=== PATIENT | male | born 1990 | race Caucasian/White ===

== ENCOUNTER 2018-11-02 16:47 | Inpatient (IN) | payer OTHER ==
[2018-11-02] MEDS ORDERED: METHYLPREDNISOLONE INJ 125 MG/2 ML SDV IV ONE (17:37)
[2018-11-02] MEDS ORDERED: IPRATROPIUM/ALBUTEROL 0.5-2.5 MG/3 ML AMPUL NEB ONE ×2 (17:37→18:36)
[2018-11-02] MEDS ORDERED: NORMAL SALINE 1000 ML 1,000 ML IV ONE (17:43)
--- NOTE | 2018-11-02 17:43 | ER Document Report ---
ED Medical Screen (RME) - General Chief Complaint: Shortness Of Breath Stated Complaint: BREATHING ISSUES Time Seen by Provider: 11/02/18 17:26 Mode of Arrival: Ambulatory Information source: Patient Notes: 27-year-old male presented to ED for shortness of breath tachycardia low O2 sat times a week. His pulse was between 130 and 140 during my exam. Sats were in the 95 on 2 L O2. He states he has been this way for about a week. He has inspiratory and expiratory wheezing without listening with a stethoscope that I can hear across the room. He is alert oriented. He states he has been getting progressively worse over the last week. I have greeted and performed a rapid initial assessment of this patient. A comprehensive ED assessment and evaluation of the patient, analysis of test results and completion of medical decision making process will be conducted by an additional ED providers. Dictation of this chart was performed using voice recognition software; therefore, there may be some unintended grammatical errors. TRAVEL OUTSIDE OF THE [place] IN LAST 30 DAYS: No - Related Data Allergies/Adverse Reactions: No Known Allergies Allergy (Verified 03/21/15 14:00) Past Medical History Pulmonary Medical History: Reports: Hx Asthma, Hx Bronchitis, Hx Pneumonia GI Medical History: Reports: Hx Gastroesophageal Reflux Disease Musculoskeltal Medical History: Reports Hx Musculoskeletal Deformity, Reports Hx Musculoskeletal Trauma Traumatic Medical History: Reports: Hx Fractures - Immunizations Immunizations up to date: Yes Hx Diphtheria, Pertussis, Tetanus Vaccination: Yes Physical Exam - Vital signs Vitals: Temp Pulse Resp BP Pulse Ox 99.2 F 140 H 22 H 190/122 H 89 L 11/02/18 17:00 11/02/18 17:00 11/02/18 17:00 11/02/18 17:00 11/02/18 17:00 Course - Vital Signs Vital signs: Temp Pulse Resp BP Pulse Ox 99.2 F 140 H 22 H 190/122 H 89 L 11/02/18 17:00 11/02/18 17:00 11/02/18 17:00 11/02/18 17:00 11/02/18 17:00
[2018-11-02] MEDS ORDERED: ONDANSETRON HCL INJ/PF 4 MG/2 ML SDV IV ONE (17:58)
[2018-11-02] MEDS: ALBUTEROL SULFATE 0.083% NEB 2.5 MG/3 ML AMPUL NEB SCH ×3 (18:10→19:50)
[2018-11-02 18:34] LABS: ABSOLUTE BASOPHILS # (AUTO) 0.2 10^3/uL (0.0-0.2); ABSOLUTE EOSINOPHILS # (AUTO) 1.6 10^3/uL (0.0-0.6); ABSOLUTE LYMPHOCYTES (AUTO) 2.4 10^3/uL (0.5-4.7); ABSOLUTE MONOCYTES (AUTO) 1.2 10^3/uL (0.1-1.4); ABSOLUTE NEUT (AUTO) 8.9 10^3/uL (1.7-8.2); BASOPHILS % (AUTO) 1.2 % (0-2); EOSINOPHILS % (AUTO) 11.5 % (0-6); HEMATOCRIT 47.3 % (37.9-51.0); HEMOGLOBIN 16.2 g/dL (13.5-17.0); MEAN CORPUSCULAR HEMOGLOBIN 30.9 pg (27.0-33.4); MEAN CORPUSCULAR HGB CONC 34.3 g/dL (32.0-36.0); MEAN CORPUSCULAR VOLUME 90 fl (80-97); MONOCYTES % (AUTO) 8.4 % (3-13); PLATELET COUNT 410 10^3/uL (150-450); RED BLOOD COUNT 5.26 10^6/uL (4.35-5.55); RED CELL DISTRIBUTION WIDTH 12.6 % (11.5-14.0); SEGMENTED NEUTROPHILS % (AUTO) 61.9 % (42-78); TOTAL CELLS COUNTED % (AUTO) 100 %; WHITE BLOOD COUNT 14.4 10^3/uL (4.0-10.5)
[2018-11-02] MEDS ORDERED: ALBUTEROL SULFATE 0.083% NEB 2.5 MG/3 ML AMPUL NEB ONE (18:36)
--- NOTE | 2018-11-02 18:39 | ER Document Report ---
ED General - General Chief Complaint: Shortness Of Breath Stated Complaint: BREATHING ISSUES Time Seen by Provider: 11/02/18 17:26 Mode of Arrival: Ambulatory Cannot obtain history due to: Unstable vital signs Notes: Patient is a 27-year-old male with a past medical history of asthma who presents with severe shortness of breath. Initial history is somewhat limited secondary to the patient's degree of distress. In summary the patient reports that over the past 1 week he has had progressively worsening shortness of breath and wheezing. States that he does not have a primary care doctor and does not have inhalers at home. States that today his symptoms became much worse over the last several hours prompting him to come to the emergency department. He describes his shortness of breath is a severe, pervasive, constant symptom. Not improved by anything. Worsened by exertion or coughing. Denies fever or constitutional symptoms. Denies pedal edema. No history of DVT or pulmonary embolus. TRAVEL OUTSIDE OF THE [place] IN LAST 30 DAYS: No - Related Data Allergies/Adverse Reactions: No Known Allergies Allergy (Verified 03/21/15 14:00) Past Medical History - General Information source: Patient - Social History Smoking Status: Current Every Day Smoker Frequency of alcohol use: None Drug Abuse: None Lives with: Family Family History: DM, Hyperlipidemia, Hypertension, Malignancy, Thyroid Disfunction Pulmonary Medical History: Reports: Hx Asthma, Hx Bronchitis, Hx Pneumonia GI Medical History: Reports: Hx Gastroesophageal Reflux Disease Musculoskeletal Medical History: Reports Hx Musculoskeletal Deformity, Reports Hx Musculoskeletal Trauma Traumatic Medical History: Reports: Hx Fractures - Immunizations Immunizations up to date: Yes Hx Diphtheria, Pertussis, Tetanus Vaccination: Yes Review of Systems - Review of Systems Notes: Constitutional: Negative for fever. HENT: Negative for sore throat. Eyes: Negative for visual changes. Cardiovascular: Negative for chest pain. Respiratory: Positive for shortness of breath. Gastrointestinal: Negative for abdominal pain, vomiting or diarrhea. Genitourinary: Negative for dysuria. Musculoskeletal: Negative for back pain. Skin: Negative for rash. Neurological: Negative for headaches, weakness or numbness. 10 point ROS negative except as marked above and in HPI. Physical Exam - Vital signs Vitals: Temp Pulse Resp BP Pulse Ox 99.2 F 140 H 22 H 190/122 H 89 L 11/02/18 17:00 11/02/18 17:00 11/02/18 17:00 11/02/18 17:00 11/02/18 17:00 Interpretation: Hypertensive, Tachycardic, Hypoxic, Tachypneic Notes: PHYSICAL EXAMINATION: GENERAL: Appears unwell, in moderate to severe respiratory distress HEAD: Atraumatic, normocephalic. EYES: Pupils equal round and reactive to light, extraocular movements intact, sclera anicteric, conjunctiva are normal. ENT: nares patent, oropharynx clear without exudates. Mildly dry mucous membranes. NECK: Normal range of motion, supple without lymphadenopathy LUNGS: Coarse wheezing in all lung john with diminished air movement throu ghout. Moderate to severe distress with associated tachypnea rates greater than 30 breaths/min. Intercostal and supraclavicular retractions are present. HEART: Regular tachycardia without murmurs ABDOMEN: Soft, nontender, normoactive bowel sounds. No guarding, no rebound. No masses appreciated. EXTREMITIES: Normal range of motion, no pitting or edema. No cyanosis. NEUROLOGICAL: No focal neurological deficits. Moves all extremities spontaneously and on command. PSYCH: Anxious SKIN: Warm, Dry, normal turgor, no rashes or lesions noted. Course - Re-evaluation Re-evalutation: 11/02/18 18:37 Documentation is delayed as I been at this patient's bedside continuously for the past 25 minutes. In summary the patient does present in respiratory distress. The patient is saturating into the mid 80s on room air and does not normally have a home oxygen requirement. He is profoundly tachycardic and also hypertensive. On exam the patient is able to speak approximately 4-5 words per sentence but is clearly laboring in his breathing with both intercostal and supraclavicular retractions. Respiratory rate in the mid 30s at the time of my initial evaluation on supple mental oxygen at a continuous nebulizer. Stat portable chest x-ray shows hyperinflation of the lungs but is otherwise unremarkable. Labs are pending. Patient is received 125 mg of Solu-Medrol. 2 g of magnesium will go over 10 minutes. Continuous nebulizers will be administered through BiPAP which has been applied within the past 1 to 2 minutes. Patient has a history of recurrent severe exacerbations and his lung examination is very consistent with a obstructive lung pathology given very pronounced expiratory wheezing in all lung john. He does have a history of tobacco abuse which could be contributing to his symptoms. Patient is in gu arded condition, will require frequent reassessments. 11/02/18 19:36 Patient continues on in-line nebulizers to the BiPAP. Tolerating BiPAP much better after 1 mg of Ativan. On repeat lung exam he has much more pronounced wheezing in all lung john and much better air movement throughout. Will c ontinue to reassess at regular intervals. Labs unremarkable. Chest x-ray has been formally read without any acute pathology. 11/02/18 20:44 Patient's work of breathing continues to improve dramatically although he continues to have coarse expiratory wheezing in all lung john. He is currently saturating 97% on 50% FiO2 12 on 6. Heart rate remains moderately elevated at 120 bpm. Will discuss with the hospitalist for admission. 11/02/18 20:52 I did discuss with Dr. Butt who has accepted the patient for admission - Vital Signs Vital signs: Temp Pulse Resp BP Pulse Ox 98.1 F 124 H 20 160/91 H 97 11/03/18 00:06 11/03/18 02:23 11/03/18 02:23 11/03/18 00:06 11/03/18 02:23 - Laboratory Result Diagrams: 11/02/18 18:05 11/02/18 18:05 Laboratory results interpreted by me: 11/02/18 11/02/18 11/02/18 18:05 18:05 18:05 WBC 14.4 H Eosinophils % 11.5 H Absolute Neutrophils 8.9 H Absolute Eosinophils 1.6 H ESR Chloride 94 L Glucose 180 H Calcium 10.4 H C-Reactive Protein 14.9 H Total Protein 8.8 H 11/02/18 18:05 WBC Eosinophils % Absolute Neutrophils Absolute Eosinophils ESR 23 H Chloride Glucose Calcium C-Reactive Protein Total Protein - Diagnostic Test Radiology reviewed: Image reviewed, Reports reviewed Radiology results interpreted by me: 11/02/18 20:52 Chest x-ray: No acute infiltrate or pneumothorax - EKG Interpretation by Me Additional EKG results interpreted by me: 11/02/18 20:52 Sinus tachycardia, rate 115. No ST elevations or depressions. QTC is 487 Critical Care Note - Critical Care Note Total time excluding time spent on procedures (mins): 40 Comments: Critical care time spent obtaining history from patient or surrogate, discussio ns with consultants, development of treatment plan with patient or surrogate, evaluation of patient's response to treatment, examination of patient, ordering and performing treatments and interventions, ordering and review of laboratory studies, re-evaluation of patient's condition, ordering and review of radiographic studies and review of old charts Discharge - Discharge Clinical Impression: Respiratory distress, Acute respiratory failure with hypoxia Asthma exacerbation Qualifiers: Asthma severity: severe Asthma persistence: unspecified Qualified Code(s): J45.901 - Unspecified asthma with (acute) exacerbation Condition: Fair Disposition: ADMITTED INPATIENT Admitting Provider: Daquan (Hospitalist) Unit Admitted: Telemetry
[2018-11-02] MEDS ORDERED: LORAZEPAM INJ 2 MG/1 ML VIAL IV ONE (18:40)
--- NOTE | 2018-11-02 18:42 | RADIOLOGY REPORT (SQ) ---
EXAM DESCRIPTION: CHEST SINGLE VIEW COMPLETED DATE/TIME: 11/02/2018 6:33 pm REASON FOR STUDY: short of breath week COMPARISON: 03/21/2015. EXAM PARAMETERS: NUMBER OF VIEWS: One view. TECHNIQUE: Single frontal radiographic view of the chest acquired. RADIATION DOSE: NA LIMITATIONS: None. FINDINGS: LUNGS AND PLEURA: No opacities, masses or pneumothorax. No pleural effusion. MEDIASTINUM AND HILAR STRUCTURES: No masses. Contour normal. HEART AND VASCULAR STRUCTURES: Heart normal in size. Normal vasculature. BONES: No acute findings. HARDWARE: None in the chest. OTHER: No other significant finding. IMPRESSION: NO ACUTE RADIOGRAPHIC FINDING IN THE CHEST. TECHNICAL DOCUMENTATION: JOB ID: [id number] [employer]- All Rights Reserved Reading location - IP/workstation name: [email or web address]
[2018-11-02 18:54] LABS: ALANINE AMINOTRANSFERASE 26 U/L (21-72); ALBUMIN 4.9 g/dL (3.5-5.0); ALKALINE PHOSPHATASE 89 U/L (38-126); ANION GAP 16 (5-19); ASPARTATE AMINO TRANSFERASE 21 U/L (17-59); BILIRUBIN,DIRECT 0.2 mg/dL (0.0-0.4); BILIRUBIN,TOTAL 0.5 mg/dL (0.2-1.3); BLOOD UREA NITROGEN 12 mg/dL (7-20); CALCIUM 10.4 mg/dL (8.4-10.2); CARBON DIOXIDE 29 mmol/L (22-30); CHLORIDE 94 mmol/L (98-107); GLUCOSE 180 mg/dL (75-110); POTASSIUM 3.9 mmol/L (3.6-5.0); SODIUM 138.8 mmol/L (137-145); TOTAL PROTEIN 8.8 g/dL (6.3-8.2)
[2018-11-02] MEDS: MAGNESIUM SULFATE/D5W 1 GM/100 ML RTUPB IV SCH ×2 (18:54→19:12)
[2018-11-02 19:04] LABS: CREATINE KINASE MB 3.85 ng/mL (<4.55)
[2018-11-02 19:06] LABS: TROPONIN I < 0.012 ng/mL
[2018-11-02] MEDS ORDERED: RINGERS SOLUTION,LACTATED 1,000 ML IV ONE (20:45)
[2018-11-02] MEDS ORDERED: ACETAMINOPHEN 325 MG TABLET PO PRN (20:48)
[2018-11-02] MEDS ORDERED: IPRATROPIUM/ALBUTEROL 0.5-2.5 MG/3 ML AMPUL NEB PRN (20:48)
[2018-11-02] MEDS: IPRATROPIUM/ALBUTEROL 0.5-2.5 MG/3 ML AMPUL NEB SCH (21:19)
[2018-11-02 22:13] LABS: APPEARANCE,URINE CLOUDY; BILIRUBIN,URINE NEGATIVE (NEGATIVE); COLOR,URINE YELLOW; GLUCOSE, URINE NEGATIVE (NEGATIVE); KETONES,URINE NEGATIVE (NEGATIVE); LEUKOCYTE ESTERASE,URINE NEGATIVE (NEGATIVE); NITRITE,URINE NEGATIVE (NEGATIVE); PROTEIN,URINE 100 mg/dL (NEGATIVE); URINE SPECIFIC GRAVITY 1.019; UROBILINOGEN,URINE NEGATIVE mg/dL (<2.0)
[2018-11-02] MEDS: METHYLPREDNISOLONE INJ 125 MG/2 ML SDV IV SCH (23:01)
[2018-11-02] MEDS: LEVOFLOXACIN 750 MG/D5W RTU 750 MG/150 ML RTUPB IV SCH (23:02)
[2018-11-02] MEDS: FLUTICASONE NASAL SPRAY 50 MCG/SPRY 120 SPRAY/16 GM NASL SCH (23:45)
[2018-11-03] MEDS: HEPARIN SOD (PORCINE) 5,000 UNIT/ML 1 ML SYRINGE SUBCUT SCH ×4 (00:45→21:07)
[2018-11-03] MEDS: CHLORPHENIRAMINE MALEATE 4 MG TABLET PO SCH ×5 (01:09→20:57)
[2018-11-03] MEDS: IPRATROPIUM/ALBUTEROL 0.5-2.5 MG/3 ML AMPUL NEB SCH ×4 (02:23→20:40)
--- NOTE | 2018-11-03 03:46 | PDOC H&P ---
History of Present Illness Admission Date/PCP: 11/02/18 20:56 Patient complains of: Shortness of breath and cough History of Present Illness: DAYA BOWIE is a 27 year old male with a past medical history of COPD, chronic bronchitis tobacco and IV heroin abuse. Patient presents 7 days after the onset of shortness of breath, nonproductive cough developing fever prompting evaluation emergency room. Presentation complicated by daily IV heroin use. In the emergency department he is found to have global wheeze audible at bedside tachycardia and hypoxia, chest x-ray is unremarkable but physical exam notable for rhonchi and a systolic murmur. Patient denies recent antibiotic use. He receives symptomatic management and referred to the hospitalist for admission. Past Medical History Cardiac Medical History: Reports: None Pulmonary Medical History: Reports: Asthma, Bronchitis, Chronic Obstructive Pulmonary Disease (COPD), Pneumonia EENT Medical History: Reports: None Neurological Medical History: Reports: None Endocrine Medical History: Reports: None Renal/ Medical History: Reports: None Malignancy Medical History: Reports: None GI Medical History: Reports: None, Gastroesophageal Reflux Disease Musculoskeltal Medical History: Reports: None Skin Medical History: Reports: None Psychiatric Medical History: Reports: Depression, Substance Abuse, Tobacco D ependency Traumatic Medical History: Reports: None Hematology: Reports: None Infectious Medical History: Reports: None Past Surgical History Past Surgical History: Reports: None Social History Information Source: Patient Lives with: Parents Smoking Status: Current Every Day Smoker Cigarettes Packs Per Day: 0.5 Frequency of Alcohol Use: Rare Hx Recreational Drug Use: Yes Drugs: Heroin, Marijuana - Advance Directive Resuscitation Status: Full Code Family History Family History: DM, Hyperlipidemia, Hypertension, Malignancy, Thyroid Disfunction Parental Family History Reviewed: Yes Children Family History Reviewed: Yes Sibling(s) Family History Reviewed.: Yes Medication/Allergy Home Medications: Albuterol Sulfate [Ventolin 0.083% Neb 2.5 mg/3 mL Ampul] 1 vial NEB Q4 PRN #25 vial 10/12/12 Tramadol HCl [Ultram 50 mg Tablet] 50 mg PO ASDIR PRN #20 tablet 03/13/14 Hydrocodone/Acetaminophen [Vicodin 5-300 mg Tablet] 1 tab PO ASDIR PRN #15 tab 10/27/14 Albuterol Sulfate [Proair HFA Inhalation Aerosol 8.5 gm MDI] 2 puff IH Q4H PRN #1 mdi 03/21/15 Prednisone 50 mg PO DAILY #5 tablet 03/21/15 Allergies/Adverse Reactions: No Known Allergies Allergy (Verified 03/21/15 14:00) Review of Systems Constitutional: PRESENT: as per HPI, anorexia, chills, fatigue, fever(s), night sweats, weakness, weight loss Eyes: ABSENT: visual disturbances Ears: ABSENT: hearing changes Cardiovascular: PRESENT: dyspnea on exertion. ABSENT: chest pain, edema, orthropnea, palpitations Respiratory: PRESENT: as per HPI, cough, dyspnea. ABSENT: sputum Gastrointestinal: ABSENT: abdominal pain, constipation, diarrhea, hematemesis, hematochezia, nausea, vomiting Genitourinary: ABSENT: dysuria, hematuria Musculoskeletal: ABSENT: joint swelling Integumentary: ABSENT: rash, wounds Neurological: ABSENT: abnormal gait, abnormal speech, confusion, dizziness, focal weakness, syncope Psychiatric: ABSENT: anxiety, depression, homidical ideation, suicidal ideation Endocrine: ABSENT: cold intolerance, heat intolerance, polydipsia, polyuria Hematologic/Lymphatic: ABSENT: easy bleeding, easy bruising Physical Exam Vital Signs: Temp Pulse Resp BP Pulse Ox 98.1 F 124 H 20 160/91 H 97 11/03/18 00:06 11/03/18 02:23 11/03/18 02:23 11/03/18 00:06 11/03/18 02:23 Intake & Output 11/01/18 11/02/18 11/03/18 11:59 11:59 11:59 Intake Total 1280 Balance 1280 Weight 78.9 kg General appearance: PRESENT: disheveled, severe distress, thin, well-developed, well-nourished Head exam: PRESENT: atraumatic, normocephalic Eye exam: PRESENT: conjunctiva pink, EOMI, PERRLA. ABSENT: scleral icterus Ear exam: PRESENT: normal external ear exam Mouth exam: PRESENT: moist, tongue midline Neck exam: ABSENT: carotid bruit, JVD, lymphadenopathy, thyromegaly Respiratory exam: PRESENT: accessory muscle use, crackles, prolonged expiratory phas, rales, retraction, rhonchi, symmetrical, tachypnea, wheezes Cardiovascular exam: PRESENT: gallop, +S1, +S2, systolic murmur, tachycardia Pulses: PRESENT: normal dorsalis pedis pul Vascular exam: PRESENT: normal capillary refill GI/Abdominal exam: PRESENT: normal bowel sounds, soft. ABSENT: distended, guarding, mass, organolmegaly, rebound, tenderness Rectal exam: PRESENT: deferred Extremities exam: PRESENT: full ROM. ABSENT: calf tenderness, clubbing, pedal edema Neurological exam: PRESENT: alert, awake, oriented to person, oriented to place, oriented to time, oriented to situation, CN II-XII grossly intact. ABSENT: motor sensory deficit Psychiatric exam: PRESENT: appropriate affect, normal mood. ABSENT: homicidal ideation, suicidal ideation Skin exam: PRESENT: other - left lateral wrist IV track lux Without phlebitis Results Laboratory Results: 11/02/18 18:05 11/02/18 18:05 11/02/18 11/02/18 11/02/18 18:05 18:05 18:05 WBC 14.4 H RBC 5.26 Hgb 16.2 Hct 47.3 MCV 90 MCH 30.9 MCHC 34.3 RDW 12.6 Plt Count 410 Seg Neutrophils % 61.9 Lymphocytes % 17.0 Monocytes % 8.4 Eosinophils % 11.5 H Basophils % 1.2 Absolute Neutrophils 8.9 H Absolute Lymphocytes 2.4 Absolute Monocytes 1.2 Absolute Eosinophils 1.6 H Absolute Basophils 0.2 Sodium 138.8 Potassium 3.9 Chloride 94 L Carbon Dioxide 29 Anion Gap 16 BUN 12 Creatinine 0.92 Est GFR ( Amer) > 60 Est GFR (Non-Af Amer) > 60 Glucose 180 H Calcium 10.4 H Total Bilirubin 0.5 AST 21 ALT 26 Alkaline Phosphatase 89 C-Reactive Protein 14.9 H Total Protein 8.8 H Albumin 4.9 Urine Color Urine Appearance Urine pH Ur Specific [place] Urine Protein Urine Glucose (UA) Urine Ketones Urine Blood Urine Nitrite Ur Leukocyte Esterase Urine WBC (Auto) Urine RBC (Auto) 11/02/18 21:55 WBC RBC Hgb Hct MCV MCH MCHC RDW Plt Count Seg Neutrophils % Lymphocytes % Monocytes % Eosinophils % Basophils % Absolute Neutrophils Absolute Lymphocytes Absolute Monocytes Absolute Eosinophils Absolute Basophils Sodium Potassium Chloride Carbon Dioxide Anion Gap BUN Creatinine Est GFR ( Amer) Est GFR (Non-Af Amer) Glucose Calcium Total Bilirubin AST ALT Alkaline Phosphatase C-Reactive Protein Total Protein Albumin Urine Color YELLOW Urine Appearance CLOUDY Urine pH 5.0 Ur Specific [place] 1.019 Urine Protein 100 H Urine Glucose (UA) NEGATIVE Urine Ketones NEGATIVE Urine Blood NEGATIVE Urine Nitrite NEGATIVE Ur Leukocyte Esterase NEGATIVE Urine WBC (Auto) 11 Urine RBC (Auto) 2 11/02/18 11/02/18 18:05 18:05 CK-MB (CK-2) 3.85 Troponin I < 0.012 NT-Pro-B Natriuret Pep 60 Impressions: Chest X-Ray 11/02/18 17:27 IMPRESSION: NO ACUTE RADIOGRAPHIC FINDING IN THE CHEST. Assessment and Plan - Diagnosis (1) Pneumonia Is this a current diagnosis for this admission?: Yes Plan: Pneumonia care set deployed, follow-CBC, blood culture, CT chest given high risk of septic emboli with IV drug use. (2) Acute respiratory failure with hypoxia Is this a current diagnosis for this admission?: Yes Plan: Secondary to #1, empiric antibiotics, albuterol, Atrovent, supplemental oxygen and BiPAP as needed (3) Systolic murmur Is this a current diagnosis for this admission?: Yes Plan: Follow-up 2D echo for risk of endocarditis. (4) IV drug user Is this a current diagnosis for this admission?: Yes Plan: May require opiate weaning. Mental health consult, follow-up CT and echo - Time Time Spent with patient: 35 or more minutes - Inpatient Certification Medical Necessity: Need Close Monitoring Due to Risk of Patient Decompensation
[2018-11-03] MEDS ORDERED: NALOXONE HCL INJ/PF 0.4 MG/1 ML SDV IV PRN (03:48)
[2018-11-03] MEDS: METHYLPREDNISOLONE INJ 125 MG/2 ML SDV IV SCH ×3 (05:37→21:05)
[2018-11-03] MEDS: METHADONE HCL 10 MG TABLET PO SCH ×3 (05:40→21:02)
[2018-11-03 06:12] LABS: ABSOLUTE LYMPHOCYTES (AUTO) 0.7 10^3/uL (0.5-4.7); ABSOLUTE MONOCYTES (AUTO) 0.1 10^3/uL (0.1-1.4); ABSOLUTE NEUT (AUTO) 3.6 10^3/uL (1.7-8.2); BASOPHILS % (AUTO) 0.2 % (0-2); EOSINOPHILS % (AUTO) 0.1 % (0-6); HEMATOCRIT 39.8 % (37.9-51.0); LYMPHOCYTES % (AUTO) 15.4 % (13-45); MEAN CORPUSCULAR HEMOGLOBIN 30.8 pg (27.0-33.4); MEAN CORPUSCULAR HGB CONC 34.4 g/dL (32.0-36.0); MEAN CORPUSCULAR VOLUME 89 fl (80-97); MONOCYTES % (AUTO) 2.2 % (3-13); PLATELET COUNT 257 10^3/uL (150-450); RED BLOOD COUNT 4.45 10^6/uL (4.35-5.55); RED CELL DISTRIBUTION WIDTH 12.7 % (11.5-14.0); SEGMENTED NEUTROPHILS % (AUTO) 82.1 % (42-78); TOTAL CELLS COUNTED % (AUTO) 100 %; WHITE BLOOD COUNT 4.4 10^3/uL (4.0-10.5)
[2018-11-03 06:23] LABS: ANION GAP 13 (5-19); BLOOD UREA NITROGEN 8 mg/dL (7-20); CALCIUM 9.5 mg/dL (8.4-10.2); CARBON DIOXIDE 28 mmol/L (22-30); CHLORIDE 95 mmol/L (98-107); GLUCOSE 198 mg/dL (75-110); SODIUM 136.2 mmol/L (137-145)
[2018-11-03 06:25] LABS: HEMOGLOBIN 13.7 g/dL (13.5-17.0)
--- NOTE | 2018-11-03 07:33 | EKG REPORT ---
SEVERITY:- ABNORMAL ECG - SINUS TACHYCARDIA LEFT POSTERIOR FASCICULAR BLOCK INFERIOR Q WAVES, PROBABLY NORMAL VARIATION BORDERLINE PROLONGED QT INTERVAL : Confirmed by: Kevin Sloan MD 03-Nov-2018 07:32:47
[2018-11-03] MEDS: FLUTICASONE NASAL SPRAY 50 MCG/SPRY 120 SPRAY/16 GM NASL SCH ×2 (11:05→21:03)
--- NOTE | 2018-11-03 14:04 | RADIOLOGY REPORT (SQ) ---
EXAM DESCRIPTION: CTA CHEST COMPLETED DATE/TIME: 11/03/2018 1:50 pm REASON FOR STUDY: IVDA septic emboli? COMPARISON: 11/02/2018 TECHNIQUE: CT scan of the chest performed using helical scanning technique with dynamic intravenous contrast injection. Images reviewed with lung, soft tissue and bone windows. Reconstructed coronal and sagittal MPR images reviewed. Additional 3 dimensional post-processing performed to develop Maximal Intensity Projection images (LA P). All images stored on PACS. All CT scanners at this facility use dose modulation, iterative reconstruction, and/or weight based d osing when appropriate to reduce radiation dose to as low as reasonably achievable (ALARA). [facility]: Dose Right [facility]: CareDose [facility]: Dose Right [facility]: Teradose 4D [facility]: SnappCloud CONTRAST TYPE AND DOSE: contrast/concentration: Isovue 350.00 mg/ml; Total Contrast Delivered: 68.0 ml; Total Saline Delivered: 100.0 ml Contrast bolus optimized for the pulmonary arteries. Not diagnostic for the aorta. RENAL FUNCTION: None required. The patient is less than 50 years old. RADIATION DOSE: CT Rad equipment meets quality standard of care and radiation dose reduction techniq ues were employed. CTDIvol: 7.6 - 11.3 mGy. DLP: 320 mGy-cm. . LIMITATIONS: Poor contrast bolus, main pulmonary artery HU = 144 FINDINGS: LUNGS AND PLEURA: No masses, infiltrates, or pneumothorax. No pleural effusions or pleura l calcifications. AORTA AND GREAT VESSELS: No aneurysm. Contrast bolus not optimized for the aorta. HEART: No pericardial effusion. No significant coronary artery calcifications. PULMONARY ARTERIES: No central pulmonary embolism. Examination is nondiagnostic more distally. HILAR AND MEDIASTINAL STRUCTURES: No identified masses or abnormal nodes. HARDWARE: None in the chest. UPPER ABDOMEN: No significant findings. Limited exam. THYROID AND OTHER SOFT TISSUES: No masses. No adenopathy. BONES: No acute or significant finding. 3D MIPS: Confirm above findings. OTHER: No other significant finding. IMPRESSION: 1. No central pulmonary embolism. Examination is nondiagnostic in the lobar and more d istal vessels due to poor contrast bolus. 2. No airspace disease, nodularity, or other finding to suggest septic embolism. COMMENT: Quality ID # [id number]: Final reports with documentation of one or more dose reduction techniques (e.g., Automated exposure control, adjustment of the mA and/or kV according to patient size, use of iterative reconstruction technique) TECHNICAL DOCUMENTATION: JOB ID: [id number] [employer]- All Rights Reserved Reading location - IP/workstation name: [email or web address]
--- NOTE | 2018-11-03 14:55 | PDOC PROGRESS REPORT ---
Subjective Progress Note for:: 11/03/18 Subjective:: No adverse events overnight. No new complaints. Breathing has been stable with acceptable SPO2 on nasal cannula. He has not been needing BiPAP for several hours now. Still little short of breath at rest but is able to get comfortable. Reason For Visit: ASTHMA EXACERBATION,PNEUMONIA Physical Exam Vital Signs: Temp Pulse Resp BP Pulse Ox 98.3 F 115 H 20 159/76 H 95 11/03/18 10:00 11/03/18 10:00 11/03/18 10:00 11/03/18 10:00 11/03/18 10:00 Intake & Output 11/02/18 11/03/18 11/04/18 06:59 06:59 06:59 Intake Total 2895 Balance 2895 Weight 78.9 kg General appearance: PRESENT: no acute distress, cooperative, disheveled Respiratory exam: PRESENT: prolonged expiratory phas, symmetrical, wheezes. ABSENT: accessory muscle use, crackles, decreased breath sounds, rhonchi, tac hypnea, unlabored Cardiovascular exam: PRESENT: RRR, +S1, +S2 Pulses: PRESENT: normal carotid pulses Vascular exam: PRESENT: normal capillary refill GI/Abdominal exam: PRESENT: normal bowel sounds, soft. ABSENT: distended, guarding, rebound, tenderness Extremities exam: ABSENT: clubbing, pedal edema Musculoskeletal exam: PRESENT: normal inspection. ABSENT: deformity Neurological exam: PRESENT: alert, awake, oriented to person, oriented to place, oriented to time, oriented to situation Psychiatric exam: PRESENT: appropriate affect, normal mood Skin exam: PRESENT: dry, warm Results Laboratory Results: 11/03/18 04:35 11/03/18 04:35 11/02/18 11/02/18 11/02/18 18:05 18:05 18:05 WBC 14.4 H RBC 5.26 Hgb 16.2 Hct 47.3 MCV 90 MCH 30.9 MCHC 34.3 RDW 12.6 Plt Count 410 Seg Neutrophils % 61.9 Lymphocytes % 17.0 Monocytes % 8.4 Eosinophils % 11.5 H Basophils % 1.2 Absolute Neutrophils 8.9 H Absolute Lymphocytes 2.4 Absolute Monocytes 1.2 Absolute Eosinophils 1.6 H Absolute Basophils 0.2 Sodium 138.8 Potassium 3.9 Chloride 94 L Carbon Dioxide 29 Anion Gap 16 BUN 12 Creatinine 0.92 Est GFR ( Amer) > 60 Est GFR (Non-Af Amer) > 60 Glucose 180 H Calcium 10.4 H Total Bilirubin 0.5 AST 21 ALT 26 Alkaline Phosphatase 89 C-Reactive Protein 14.9 H Total Protein 8.8 H Albumin 4.9 Urine Color Urine Appearance Urine pH Ur Specific [place] Urine Protein Urine Glucose (UA) Urine Ketones Urine Blood Urine Nitrite Ur Leukocyte Esterase Urine WBC (Auto) Urine RBC (Auto) 11/02/18 11/03/18 11/03/18 21:55 04:35 04:35 WBC 4.4 RBC 4.45 Hgb 13.7 D Hct 39.8 MCV 89 MCH 30.8 MCHC 34.4 RDW 12.7 Plt Count 257 Seg Neutrophils % 82.1 H Lymphocytes % 15.4 Monocytes % 2.2 L Eosinophils % 0.1 Basophils % 0.2 Absolute Neutrophils 3.6 Absolute Lymphocytes 0.7 Absolute Monocytes 0.1 Absolute Eosinophils 0.0 Absolute Basophils 0.0 Sodium 136.2 L Potassium 4.0 Chloride 95 L Carbon Dioxide 28 Anion Gap 13 BUN 8 Creatinine 0.58 Est GFR ( Amer) > 60 Est GFR (Non-Af Amer) > 60 Glucose 198 H Calcium 9.5 Total Bilirubin AST ALT Alkaline Phosphatase C-Reactive Protein Total Protein Albumin Urine Color YELLOW Urine Appearance CLOUDY Urine pH 5.0 Ur Specific [place] 1.019 Urine Protein 100 H Urine Glucose (UA) NEGATIVE Urine Ketones NEGATIVE Urine Blood NEGATIVE Urine Nitrite NEGATIVE Ur Leukocyte Esterase NEGATIVE Urine WBC (Auto) 11 Urine RBC (Auto) 2 11/02/18 11/02/18 18:05 18:05 CK-MB (CK-2) 3.85 Troponin I < 0.012 NT-Pro-B Natriuret Pep 60 Impressions: Chest X-Ray 11/02/18 17:27 IMPRESSION: NO ACUTE RADIOGRAPHIC FINDING IN THE CHEST. Assessment and Plan - Diagnosis (1) Acute respiratory failure with hypoxia Is this a current diagnosis for this admission?: Yes Plan: Continue supplemental O2 to keep SPO2 greater than 90% (2) Asthma exacerbation Qualifiers: Asthma severity: severe Asthma persistence: unspecified Qualified Code(s): J45.901 - Unspecified asthma with (acute) exacerbation Is this a current diagnosis for this admission?: Yes Plan: Continue steroids, bronchodilators, and antibiotics. (3) IV drug user Is this a current diagnosis for this admission?: Yes Plan: May require opiate weaning. Mental health consult, follow-up CT and echo pending - Time Time Spent with patient: 15-24 minutes
[2018-11-03] MEDS: LEVOFLOXACIN 750 MG/D5W RTU 750 MG/150 ML RTUPB IV SCH (21:00)
[2018-11-04] MEDS: IPRATROPIUM/ALBUTEROL 0.5-2.5 MG/3 ML AMPUL NEB SCH ×4 (02:12→20:18)
[2018-11-04] MEDS: GUAIFENESIN SYRP 200 MG/10 ML UDC PO PRN (03:32)
[2018-11-04] MEDS: HYDRALAZINE HCL INJ/PF 20 MG/1 ML SDV IV PRN ×2 (03:33→09:33)
[2018-11-04] MEDS: HEPARIN SOD (PORCINE) 5,000 UNIT/ML 1 ML SYRINGE SUBCUT SCH ×3 (05:35→21:34)
[2018-11-04] MEDS: METHADONE HCL 10 MG TABLET PO SCH ×3 (05:36→21:27)
[2018-11-04] MEDS: METHYLPREDNISOLONE INJ 125 MG/2 ML SDV IV SCH ×3 (05:36→21:28)
[2018-11-04] MEDS: FLUTICASONE NASAL SPRAY 50 MCG/SPRY 120 SPRAY/16 GM NASL SCH ×2 (09:31→21:34)
--- NOTE | 2018-11-04 15:58 | PDOC PROGRESS REPORT ---
Subjective Progress Note for:: 11/04/18 Subjective:: No adverse events overnight. No new complaints. He looks a lot more comfortable today. He is asking if he can take a shower. He still has some intermittent cough, it is nonproductive. Reason For Visit: ASTHMA EXACERBATION,PNEUMONIA Physical Exam Vital Signs: Temp Pulse Resp BP Pulse Ox 98.0 F 122 H 18 152/65 H 95 11/04/18 15:15 11/04/18 15:15 11/04/18 15:15 11/04/18 15:15 11/04/18 15:15 Intake & Output 11/03/18 11/04/18 11/05/18 06:59 06:59 06:59 Intake Total 2895 2250 340 Balance 2895 2250 340 Weight 78.9 kg 78.9 kg General appearance: PRESENT: no acute distress, cooperative, disheveled Respiratory exam: PRESENT: symmetrical, unlabored, wheezes. ABSENT: accessory muscle use, crackles, prolonged expiratory phas, rhonchi, tachypnea Cardiovascular exam: PRESENT: tachycardia Pulses: PRESENT: normal carotid pulses Vascular exam: PRESENT: normal capillary refill GI/Abdominal exam: PRESENT: normal bowel sounds, soft. ABSENT: distended, guarding, rebound, tenderness Extremities exam: ABSENT: clubbing, pedal edema Musculoskeletal exam: PRESENT: normal inspection. ABSENT: deformity Neurological exam: PRESENT: alert, awake, oriented to person, oriented to place, oriented to time, oriented to situation Psychiatric exam: PRESENT: appropriate affect, normal mood Skin exam: PRESENT: dry, warm Results Laboratory Results: 11/03/18 04:35 11/03/18 04:35 11/02/18 11/02/18 18:05 18:05 CK-MB (CK-2) 3.85 Troponin I < 0.012 NT-Pro-B Natriuret Pep 60 Impressions: Chest X-Ray 11/02/18 17:27 IMPRESSION: NO ACUTE RADIOGRAPHIC FINDING IN THE CHEST. Chest/Abdomen CTA 11/03/18 00:00 IMPRESSION: 1. No central pulmonary embolism. Examination is nondiagnostic in the lobar and more distal vessels due to poor contrast bolus. 2. No airspace disease, nodularity, or other finding to suggest septic embolism. Assessment and Plan - Diagnosis (1) Acute respiratory failure with hypoxia Is this a current diagnosis for this admission?: Yes Plan: Continue supplemental O2 to keep SPO2 greater than 90% (2) Asthma exacerbation Qualifiers: Asthma severity: severe Asthma persistence: unspecified Qualified Code(s): J45.901 - Unspecified asthma with (acute) exacerbation Is this a current diagnosis for this admission?: Yes Plan: Continue IV steroids today. Will hopefully be able to de-escalate tomorrow. Continue nebulizer treatments. Chest CT was negative. (3) IV drug user Is this a current diagnosis for this admission?: Yes Plan: He asked if he go outside earlier and I declined to allow it. Chest CT was negative. Echocardiogram is pending. Blood cultures have been negative. - Time Time Spent with patient: 15-24 minutes
--- NOTE | 2018-11-04 19:47 | XCELERA REPORT ---
[address] [address] Transthoracic Echocardiogram Report Name: DAYA BOWIE Age: 27 yrs Gender: Male : 1990 Patient Status: Inpatient Patient Location: [address] [place], [place] [id number] Study Date: 11/03/2018 09:17 AM Height: 72 in Weight: 173 lb BSA: 2.0 m2 Procedure: A two-dimensional transthoracic echocardiogram with color flow and Doppler was performed. Study Quality: Fair. Reason For Study: IVDA systolic murmur History: systolic murmur. Ordering Physician: DYAN BERGER Performed By: Yamel Ward Interpretation Summary systolic murmur The left ventricle is normal in size. There is normal left ventricular wall thickness. LV EF is > than 65% Doppler measurements suggest normal left ventricular diastolic function The left ventricular wall motion is normal. No ASD,VSD,or PFO. The right ventricle is normal in size and function. The right atrium is normal. The left atrial size is normal. There is no evidence of mitral valve prolapse. There is no vegetation seen on the mitral valve. There is no mitral valve stenosis. There is no mitral regurgitation noted. There is no aortic valvular vegetation. There is no aortic valve stenosis There is no LVOT obstruction. No aortic regurgitation is present. There is no tricuspid stenosis. There is a trace amount of tricuspid regurgitation There is no tricuspid valve vegetation. RVSP is 33 mm of Hg , with RA mean of 10.No significant pulmonary hypertension. There is no pulmonic valvular stenosis. There is no pulmonic valvular regurgitation. The aortic root is normal size. The inferior vena cava appeared normal and decreased > 50% with respiration (RAP 5-10 mmHg) There is no pericardial effusion. MMode/2D Measurements & Calculations RVDd: 3.1 cm LVIDd: 5.3 cm FS: 36.8 % Ao root diam: 2.8 cm IVSd: 0.68 cm LVIDs: 3.4 cm EDV(Teich): LVPWd: 1.0 cm 137.6 ml Ao root area: ESV(Teich): 6.3 cm2 46.6 ml EF(Teich): 66.2 % EDV(MOD-sp4): SV(MOD-sp4): 111.5 ml 71.3 ml ESV(MOD-sp4): 40.2 ml EF(MOD-sp4): 63.9 % Doppler Measurements & Calculations MV E max alda: MV dec slope: Ao V2 max: LV V1 max P.7 cm/sec 168.4 cm/sec 8.9 mmHg MV A max alda: 765.2 cm/sec2 Ao max PG: LV V1 max: 90.5 cm/sec MV dec time: 0.15 sec11.3 mmHg 149.0 cm/sec MV E/A: 1.3 PA V2 max: TR max alda: 151.9 cm/sec 284.6 cm/sec PA max P.2 mmHg TR max P.2 mmHg Left Ventricle The left ventricle is normal in size. There is normal left ventricular wall thickness. LV EF is > than 65%. Doppler measurements suggest normal left ventricular diastolic function. The left ventricular wall motion is normal. No ASD,VSD,or PFO. Right Ventricle The right ventricle is normal in size and function. Atria The right atrium is normal. The left atrial size is normal. Mitral Valve There is no evidence of mitral valve prolapse. There is no vegetation seen on the mitral valve. There is no mitral valve stenosis. There is no mitral regurgitation noted. Aortic Valve There is no aortic valvular vegetation. There is no aortic valve stenosis. There is no LVOT obstruction. No aortic regurgitation is present. Tricuspid Valve There is no tricuspid valve vegetation. There is no tricuspid stenosis. There is a trace amount of tricuspid regurgitation. RVSP is 33 mm of Hg , with RA mean of 10.No significant pulmonary hypertension. Pulmonic Valve There is no pulmonic valvular stenosis. There is no pulmonic valvular regurgitation. Great Vessels The aortic root is normal size. The inferior vena cava appeared normal and decreased > 50% with respiration (RAP 5-10 mmHg). Effusions There is no pericardial effusion. : DYAN BERGER > Eneida Michelle
[2018-11-04] MEDS: LEVOFLOXACIN 750 MG/D5W RTU 750 MG/150 ML RTUPB IV SCH (21:28)
[2018-11-05] MEDS: IPRATROPIUM/ALBUTEROL 0.5-2.5 MG/3 ML AMPUL NEB SCH ×4 (02:39→20:27)
[2018-11-05] MEDS: METHADONE HCL 10 MG TABLET PO SCH ×3 (05:32→22:05)
[2018-11-05] MEDS: METHYLPREDNISOLONE INJ 125 MG/2 ML SDV IV SCH ×3 (05:33→22:05)
[2018-11-05] MEDS: HEPARIN SOD (PORCINE) 5,000 UNIT/ML 1 ML SYRINGE SUBCUT SCH ×3 (05:33→22:05)
[2018-11-05] MEDS: FLUTICASONE NASAL SPRAY 50 MCG/SPRY 120 SPRAY/16 GM NASL SCH ×2 (09:03→22:06)
[2018-11-05] MEDS: HYDRALAZINE HCL INJ/PF 20 MG/1 ML SDV IV PRN (09:03)
[2018-11-05] MEDS: GUAIFENESIN SYRP 200 MG/10 ML UDC PO PRN (09:18)
--- NOTE | 2018-11-05 14:58 | PDOC PROGRESS REPORT ---
Subjective Progress Note for:: 11/05/18 Subjective:: No adverse events overnight. No new complaints. There was some suspicion that 1 of the patient's acquaintances had brought him in a mood altering substance because of some behavior that he had apparently displayed earlier, when I saw him he was up walking in the room heading into the bathroom to take a shower. He was on room air and looked comfortable. No cough or shortness of breath. Reason For Visit: ASTHMA EXACERBATION,PNEUMONIA Physical Exam Vital Signs: Temp Pulse Resp BP Pulse Ox 98.3 F 105 H 18 178/90 H 93 11/05/18 09:00 11/05/18 14:30 11/05/18 14:30 11/05/18 10:25 11/05/18 09:00 Intake & Output 11/04/18 11/05/18 11/06/18 06:59 06:59 06:59 Intake Total 2250 1210 360 Balance 2250 1210 360 Weight 78.9 kg 78.9 kg General appearance: PRESENT: no acute distress, cooperative, disheveled Respiratory exam: PRESENT: symmetrical, unlabored, faint end expiratory wheezes. ABSENT: accessory muscle use, crackles, prolonged expiratory phas, rhonchi, tachypnea Cardiovascular exam: PRESENT: tachycardia Pulses: PRESENT: normal carotid pulses Vascular exam: PRESENT: normal capillary refill GI/Abdominal exam: PRESENT: normal bowel sounds, soft. ABSENT: distended, guarding, rebound, tenderness Extremities exam: ABSENT: clubbing, pedal edema Musculoskeletal exam: PRESENT: normal inspection. ABSENT: deformity Neurological exam: PRESENT: alert, awake, oriented to person, oriented to place, oriented to time, oriented to situation Psychiatric exam: PRESENT: appropriate affect, normal mood Skin exam: PRESENT: dry, warm Results Laboratory Results: 11/03/18 04:35 11/03/18 04:35 11/02/18 11/02/18 18:05 18:05 CK-MB (CK-2) 3.85 Troponin I < 0.012 NT-Pro-B Natriuret Pep 60 Impressions: Chest X-Ray 11/02/18 17:27 IMPRESSION: NO ACUTE RADIOGRAPHIC FINDING IN THE CHEST. Chest/Abdomen CTA 11/03/18 00:00 IMPRESSION: 1. No central pulmonary embolism. Examination is nondiagnostic in the lobar and more distal vessels due to poor contrast bolus. 2. No airspace disease, nodularity, or other finding to suggest septic embolism. Assessment and Plan - Diagnosis (1) Acute respiratory failure with hypoxia Is this a current diagnosis for this admission?: Yes Plan: Resolved. No longer on oxygen. (2) Asthma exacerbation Qualifiers: Asthma severity: severe Asthma persistence: unspecified Qualified Code(s): J45.901 - Unspecified asthma with (acute) exacerbation Is this a current diagnosis for this admission?: Yes Plan: Symptoms have improved. He still wheezing but it is not as bad as previous days. I am going to decrease his steroids down to oral prednisone in the hopes that we will be able to discharge him home tomorrow. (3) IV drug user Is this a current diagnosis for this admission?: Yes Plan: Chest CT was negative. Echocardiogram was without abnormality, specifically no evidence of valvular vegetation. Blood cultures have been negative. - Time Time Spent with patient: 15-24 minutes
[2018-11-05 20:04] VITALS: BP 158/86
[2018-11-05] MEDS: LEVOFLOXACIN 750 MG/D5W RTU 750 MG/150 ML RTUPB IV SCH (22:05)
--- NOTE | 2018-11-06 06:55 | Left Against Medical Advice ---
Against Medical Advice Admission Date/Time: 11/02/18 20:56 Primary Care Provider: Date of Patient Emigration: 11/06/18 - Diagnosis: (1) Asthma exacerbation Is this a current diagnosis for this admission?: Yes (2) Acute respiratory failure with hypoxia Is this a current diagnosis for this admission?: Yes (3) IV drug user Is this a current diagnosis for this admission?: Yes - Summary: Summary: Please see Admission and Progress Notes as well. DAYA BOWIE is a 27 M, who LEFT AGAINST MEDICAL ADVICE. The Patient was admitted on 11/02/18 20:56. Patient left AGAINST MEDICAL ADVICE on 11/06/2018 at 00:05.
== END 2018-11-06 00:05 | disposition home or self-care (01) | DRG 202 ==
LOC: ER 16:47 → EH 20:56 → 4N 11-03 00:04
PROVIDERS: ADMIT Internal Medicine; ATTEND Internal Medicine
PROC: 5A09357 Assistance with Respiratory Ventilation, Less than 24 Consecutive Hours, Continuous Positive Airway Pressure (ICD-10-PCS; principal; 2018-11-02)
PROC: 3E0F73Z Introduction of Anti-inflammatory into Respiratory Tract, Via Natural or Artificial Opening (ICD-10-PCS; 2018-11-02)
DX: J45.51 Severe persistent asthma with (acute) exacerbation (principal); J96.01 Acute respiratory failure with hypoxia; K21.9 Gastro-esophageal reflux disease without esophagitis; F32.9 Major depressive disorder, single episode, unspecified; F17.210 Nicotine dependence, cigarettes, uncomplicated; R01.1 Cardiac murmur, unspecified; F19.90 Other psychoactive substance use, unspecified, uncomplicated; Z83.3 Family history of diabetes mellitus; Z82.49 Family history of ischemic heart disease and other diseases of the circulatory system; Z80.9 Family history of malignant neoplasm, unspecified; Z83.49 Family history of other endocrine, nutritional and metabolic diseases; Z79.899 Other long term (current) drug therapy
CPT/HCPCS: 36415; 71045; 71275; 80048; 80053; 81001; 82553; 83880; 84484; 85025; 85652; 86140; 93005; 93010; 93306; 94640; 94660; 94668; 94799; 96361; 96365; 96375; 99291; J0360; J1644; J1956; J2060; J2405; J2930; J3475; J3490; J7030; J7120; J7620

== ENCOUNTER 2019-02-17 10:05 | Emergency (ER) | payer OTHER ==
[2019-02-17 11:30] LABS: APPEARANCE,URINE SLIGHTLY-CLOUDY; BILIRUBIN,URINE NEGATIVE (NEGATIVE); COLOR,URINE YELLOW; GLUCOSE, URINE 50 mg/dL (NEGATIVE); KETONES,URINE TRACE mg/dL (NEGATIVE); LEUKOCYTE ESTERASE,URINE NEGATIVE (NEGATIVE); NITRITE,URINE NEGATIVE (NEGATIVE); PROTEIN,URINE NEGATIVE (NEGATIVE); URINE SPECIFIC GRAVITY 1.027
[2019-02-17] MEDS ORDERED: AZITHROMYCIN 1 GM SUSP PACKET PO ONE (12:03)
[2019-02-17] MEDS ORDERED: CEFTRIAXONE INJ 250 MG VIAL IM ONE (12:03)
--- NOTE | 2019-02-17 12:09 | ER Document Report ---
ED General - General Chief Complaint: Skin Sore(s) Stated Complaint: RASH/SWELLING, PENAL AREA Time Seen by Provider: 02/17/19 10:59 Mode of Arrival: Ambulatory Information source: Patient TRAVEL OUTSIDE OF THE [place] IN LAST 30 DAYS: No - HPI Notes: Patient complains of pain at the base of his penis. He states that started 2 days ago. He states it is throbbing pain. It is moderate. It radiates up in his abdomen. He states he thought maybe there was pus so he did try squeezing the area today. He states it is not worse. It is constant. It is worse when touched and better if left alone. He denies any discharge from his penis. No burning with urination. No diarrhea. No vomiting. He states he did take street drugs this morning that included showing up what he believes was an Adderall - Related Data Allergies/Adverse Reactions: No Known Allergies Allergy (Verified 02/17/19 10:06) Past Medical History - General Information source: Patient - Social History Smoking Status: Current Every Day Smoker Frequency of alcohol use: None Drug Abuse: Heroin, Marijuana, Methamphetamine Family History: DM, Hyperlipidemia, Hypertension, Malignancy, Thyroid Disfunction Patient has suicidal ideation: No Patient has homicidal ideation: No Pulmonary Medical History: Reports: Hx Asthma, Hx Bronchitis, Hx COPD, Hx Pneumonia Renal/ Medical History: Denies: Hx Peritoneal Dialysis GI Medical History: Reports: Hx Gastroesophageal Reflux Disease Musculoskeletal Medical History: Reports Hx Musculoskeletal Deformity, Reports Hx Musculoskeletal Trauma Psychiatric Medical History: Reports: Hx Depression Traumatic Medical History: Reports: Hx Fractures - Immunizations Immunizations up to date: Yes Hx Diphtheria, Pertussis, Tetanus Vaccination: Yes Review of Systems - Review of Systems Constitutional: denies: Chills, Fever Cardiovascular: denies: Chest pain, Dyspnea Respiratory: denies: Cough, Short of breath -: Yes All other systems reviewed and negative Physical Exam - Vital signs Vitals: Temp Pulse Resp BP Pulse Ox 98.4 F 117 H 20 183/106 H 97 02/17/19 10:09 02/17/19 10:09 02/17/19 10:09 02/17/19 10:09 02/17/19 10:09 Interpretation: Hypertensive, Tachycardic - General General appearance: Appears well, Alert - HEENT Head: Normocephalic, Atraumatic Eyes: Normal Pupils: PERRL - Respiratory Respiratory status: No respiratory distress Chest status: Nontender Breath sounds: Normal Chest palpation: Normal - Cardiovascular Rhythm: Tachycardia Heart sounds: Normal auscultation Murmur: No - Abdominal Inspection: Normal Distension: No distension Bowel sounds: Normal Tenderness: Nontender Organomegaly: No organomegaly - Genitourinary Inspection: Other - Patient has erythema and induration and tenderness at the base of his penis and to the mons pubis. He also has multiple ruptured vesicles consistent with herpetic lesions. No evidence of abscess. Tenderness: Other - Base of penis is tender Scrotum: Normal - Back Back: Normal, Nontender - Extremities General upper extremity: Normal inspection, Nontender, Normal color, Normal ROM, Normal temperature General lower extremity: Normal inspection, Nontender, Normal color, Normal ROM, Normal temperature, Normal weight bearing. No: Lissette's sign - Neurological Neuro grossly intact: Yes Cognition: Normal Orientation: AAOx4 [place] Coma Scale Eye Opening: Spontaneous [place] Coma Scale Verbal: Oriented [place] Coma Scale Motor: Obeys Commands [place] Coma Scale Total: 15 Speech: Normal Motor strength normal: LUE, RUE, LLE, RLE Sensory: Normal - Psychological Associated symptoms: Normal affect, Normal mood - Skin Skin Temperature: Warm Skin Moisture: Dry Skin Color: Normal Course - Vital Signs Vital signs: Temp Pulse Resp BP Pulse Ox 98.4 F 117 H 20 183/106 H 97 02/17/19 10:09 02/17/19 10:09 02/17/19 10:09 02/17/19 10:09 02/17/19 10:09 - Laboratory Laboratory results interpreted by me: 02/17/19 10:58 Urine Glucose (UA) 50 H Urine Ketones TRACE H Urine Urobilinogen 2.0 H Urine Ascorbic Acid 40 H 02/17/19 12:06 Laboratory 02/17/19 10:58 Urine Color YELLOW Urine Appearance SLIGHTLY-CLOUDY Urine pH 6.0 Ur Specific [place] 1.027 Urine Protein NEGATIVE Urine Glucose (UA) 50 H Urine Ketones TRACE H Urine Blood NEGATIVE Urine Nitrite NEGATIVE Urine Bilirubin NEGATIVE Urine Urobilinogen 2.0 H Ur Leukocyte Esterase NEGATIVE Urine WBC (Auto) 1 Urine RBC (Auto) 2 Urine Mucus (Auto) MANY Urine Ascorbic Acid 40 H Discharge - Discharge Clinical Impression: Substance abuse 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 Please stop using unprescribed medications and street drugs. Your heart rate and blood pressure are high. You are in danger of having a heart or kidney damage due to your use of illicit drugs. Please have your blood pressure rechecked in 3 days by your family physician or here at the emergency department. Also please have your penile lesions reexamined by your primary physician in the next week. Prescriptions: Doxycycline Hyclate 100 mg PO BID 7 Days #14 capsule Acyclovir [Zovirax 800 mg Tablet] 800 mg PO 5XD #50 tab Forms: Elevated Blood Pressure Referrals: DONOVAN MERCADO MD [COMMUNITY BASED STAFF] - Follow up as needed
[2019-02-17 12:36] VITALS: BP 162/96
[2019-02-17 12:54] LABS: CHLAM PCR NOT DETECTED (NOT DETECT)
== END 2019-02-17 12:37 | disposition home or self-care (01) ==
LOC: ER 10:05
DX: A60.01 Herpesviral infection of penis (principal); F19.10 Other psychoactive substance abuse, uncomplicated; F12.10 Cannabis abuse, uncomplicated; F11.10 Opioid abuse, uncomplicated; R21 Rash and other nonspecific skin eruption; R10.9 Unspecified abdominal pain; F17.200 Nicotine dependence, unspecified, uncomplicated; J44.9 Chronic obstructive pulmonary disease, unspecified
CPT/HCPCS: 99283; 96372; 81001; 87491; 87591; Q0144; J0696

== ENCOUNTER 2019-11-01 18:12 | Emergency (ER) | payer OTHER ==
[2019-11-01] MEDS ORDERED: POLYMYXIN B SULFATE/TMP OPH SOLN (10 ML/ER DISP) OU SCH (20:30)
--- NOTE | 2019-11-01 20:30 | ER Document Report ---
ED Eye Complaint - General Chief Complaint: Redness of Eye Stated Complaint: EYE IRRITATION/REDNESS Time Seen by Provider: 11/01/19 19:54 Primary Care Provider: JESSICA GIVENS MD [ACTIVE STAFF] - Follow up in 3-5 days (Call for follow-up appointment if not improving in 2 to 3 days.) Mode of Arrival: Ambulatory Information source: Patient Notes: 28-year-old male with no previous medical problems presents emergency room complaining of bilateral eye redness and discharge for the past week. States he is tried multiple [id number] eyedrops without relief. Denies any trauma or injury. No known ill contacts. COVID-19 exposure. Denies any use of contacts. Denies pain, denies visual changes. TRAVEL OUTSIDE OF THE [place] IN LAST 30 DAYS: No - Related Data Allergies/Adverse Reactions: No Known Allergies Allergy (Verified 11/01/19 18:23) Home Medications: denies Past Medical History - Social History Smoking Status: Current Every Day Smoker Chew tobacco use (# tins/day): No Frequency of alcohol use: Social Drug Abuse: Marijuana Lives with: Friend Family History: DM, Hyperlipidemia, Hypertension, Malignancy, Thyroid Disfunction Patient has homicidal ideation: No Pulmonary Medical History: Reports: Hx Asthma, Hx Bronchitis, Hx COPD, Hx Pneumonia Renal/ Medical History: Denies: Hx Peritoneal Dialysis GI Medical History: Reports: Hx Gastroesophageal Reflux Disease Musculoskeletal Medical History: Reports Hx Musculoskeletal Deformity, Reports Hx Musculoskeletal Trauma Psychiatric Medical History: Reports: Hx Depression Traumatic Medical History: Reports: Hx Fractures - Immunizations Immunizations up to date: Yes Hx Diphtheria, Pertussis, Tetanus Vaccination: Yes Review of Systems - Review of Systems Constitutional: No symptoms reported EENT: Eye discharge, Tearing. denies: Eye pain, Blurred vision, Double vision, Sinus pressure, Sinus discharge Cardiovascular: No symptoms reported Respiratory: No symptoms reported Musculoskeletal: No symptoms reported Skin: No symptoms reported Neurological/Psychological: No symptoms reported -: Yes All other systems reviewed and negative Physical Exam - Vital signs Vitals: Temp Pulse BP Pulse Ox 98.3 F 112 H 174/98 H 96 11/01/19 18:15 11/01/19 18:15 11/01/19 18:15 11/01/19 18:15 - General General appearance: Appears well, Alert In distress: Mild - HEENT Head: Normocephalic, Atraumatic Eyes: Normal Conjunctiva: Injected, Purulent discharge Cornea: Normal Extraocular movements intact: Yes Eyelashes: Matted Pupils: PERRL Visual acuity- Right eye: 20/13 Visual acuity- Left eye: 20/13 Visual acuity- Both eyes: 20/13 Corrective lenses worn: No Fundascopic: Normal - Respiratory Respiratory status: No respiratory distress Chest status: Nontender Breath sounds: Normal Chest palpation: Normal - Cardiovascular Rhythm: Tachycardia Heart sounds: Normal auscultation Murmur: No - Neurological Neuro grossly intact: Yes Cognition: Normal Orientation: AAOx4 [place] Coma Scale Eye Opening: Spontaneous Martita Coma Scale Verbal: Oriented Martita Coma Scale Motor: Obeys Commands [place] Coma Scale Total: 15 Speech: Normal Motor strength normal: LUE, RUE, LLE, RLE Sensory: Normal - Skin Skin Temperature: Warm Skin Moisture: Dry Skin Color: Normal Course - Re-evaluation Re-evalutation: 11/01/19 20:34 Reviewed diagnosis with patient. Counseled on good handwashing, can wipe discharge from eyes with a warm cotton ball and then throw in the garbage and wash hands. Use eyedrops as prescribed. Outpatient follow-up with ophthalmology if not improving in 2 to 3 days. On-call head holder was provided. Given strict return to emergency room guidelines. Return for any new or worsening symptoms. All questions were answered. Patient verbalized understanding and agrees with plan of care. - Vital Signs Vital signs: Temp Pulse Resp BP Pulse Ox 98.0 F 98 18 153/90 H 100 11/01/19 20:51 11/01/19 20:51 11/01/19 20:51 11/01/19 20:51 11/01/19 20:51 Discharge - Discharge Clinical Impression: Bilateral conjunctivitis Qualifiers: Conjunctivitis type: unspecified Qualified Code(s): H10.9 - Unspecified conjunctivitis Condition: Stable Disposition: HOME, SELF-CARE Instructions: Conjunctivitis ([facility]), Eyedrop Use ([facility]) Additional Instructions: Good handwashing, eyedrops as prescribed. Can wipe discharge from the eyes with a warm cotton ball and then throw in garbage and wash hands. Follow-up with ophthalmology if not improving in 2 to 3 days. Return for any new or worsening symptoms. Referrals: JESSICA GIVENS MD [ACTIVE STAFF] - Follow up in 3-5 days (Call for follow-up appointment if not improving in 2 to 3 days.)
[2019-11-01 20:52] VITALS: BP 153/90
== END 2019-11-01 20:51 | disposition home or self-care (01) ==
LOC: ER 18:12
DX: H10.9 Unspecified conjunctivitis (principal); H57.13 Ocular pain, bilateral; R00.0 Tachycardia, unspecified; F17.200 Nicotine dependence, unspecified, uncomplicated; J44.9 Chronic obstructive pulmonary disease, unspecified
CPT/HCPCS: 99282; J3490